=== PATIENT | male | born 1995 | race Hispanic/Latino ===

== ENCOUNTER 2020-08-19 00:49 | Emergency (ER) | payer OTHER, SELFPAY ==
--- NOTE | 2020-08-19 02:11 | ER ---
Nurse's Notes [facility] Name: Bhavesh Her Age: 25 yrs Sex: Male : 1995 Arrival Date: 08/19/2020 Time: 01:02 Bed 20 Private MD: Diagnosis: Cellulitis of left lower limb Presentation: 08/19 01:20 Chief complaint: Patient states: he has two sores on his left leg x 2 days which are bb getting more painful. Coronavirus screen: At this time, the client does not indicate any symptoms associated with coronavirus-19. Ebola Screen: No symptoms or risks identified at this time. Initial Sepsis Screen: Does the patient meet any 2 criteria? No. Patient's initial sepsis screen is negative. Does the patient have a suspected source of infection? No. Patient's initial sepsis screen is negative. Risk Assessment: Do you want to hurt yourself or someone else? Patient reports no desire to harm self or others. Onset of symptoms was August 16, 2020. 01:20 Method Of Arrival: Wheelchair bb 01:20 Acuity: CESAR 4 bb Historical: - Allergies: 01:21 No Known Allergies; bb - Home Meds: 01:21 None [Active]; bb - PMHx: 01:21 None; bb - PSHx: 01:21 None; bb - Immunization history:: Adult Immunizations up to date. - Social history:: Smoking status: Reported history of juuling and/or vaping. Patient/guardian denies using alcohol, street drugs, The patient lives with family. - Family history:: not pertinent. Screenin:30 Abuse screen: Denies threats or abuse. Nutritional screening: No deficits noted. jb4 Tuberculosis screening: No symptoms or risk factors identified. Fall Risk None identified. Assessment: 01:30 General: Appears in no apparent distress. comfortable, Behavior is calm, cooperative, jb4 appropriate for age. Pain: Complains of pain in left leg. Neuro: Level of Consciousness is awake, alert, obeys commands, Oriented to person, place, time, situation. Cardiovascular: Patient's skin is warm and dry. Respiratory: Airway is patent Respiratory effort is even, unlabored, Respiratory pattern is regular, symmetrical. GI: No signs and/or symptoms were reported involving the gastrointestinal system. : No signs and/or symptoms were reported regarding the genitourinary system. EENT: No signs and/or symptoms were reported regarding the EENT system. Derm: Skin is intact, Skin is pink, warm \T\ dry. Musculoskeletal: Circulation, motion, and sensation intact. Range of motion: intact in all extremities. 02:32 Reassessment: Patient appears in no apparent distress at this time. Patient and/or jb4 family updated on plan of care and expected duration. Pain level reassessed. Patient is alert, oriented x 3, equal unlabored respirations, skin warm/dry/pink. Vital Signs: 01:20 BP 126 / 85; Pulse 105; Resp 16 S; Temp 99.6(O); Pulse Ox 98% on R/A; Weight 104.33 kg bb (R); Height 5 ft. 11 in. (180.34 cm) (R); Pain 8/10; 01:20 Body Mass Index 32.08 (104.33 kg, 180.34 cm) ED Course: 01:02 Patient arrived in ED. cf2 01:20 Rika Toribio MD is Attending Physician. ma2 01:21 Triage completed. bb 01:21 Arm band placed on Patient placed in an exam room, on a stretcher, on pulse oximetry. bb Family accompanied patient. 01:30 Patient has correct armband on for positive identification. Bed in low position. Call jb4 light in reach. Side rails up X 1. Pulse ox on. NIBP on. 02:21 Brice Hernandez RN is Primary Nurse. jb4 02:32 No provider procedures requiring assistance completed. Patient did not have IV access jb4 during this emergency room visit. Administered Medications: 02:20 Drug: Clindamycin 900 mg Route: IM; Site: left gluteus; jb4 02:35 Follow up: Response: No adverse reaction jb4 02:20 Drug: [place] (HYDROcodone-acetaminophen) (7.5 mg-325 mg) 1 tabs Route: PO; jb4 02:35 Follow up: Response: No adverse reaction jb4 02:22 Not Given (Other Intervention Used): [place] (HYDROcodone-acetaminophen) (7.5 mg-325 mg) jb4 2 tabs PO once; RASS on ADMIN: Combtv4, Very Agttd3, Agttd2, Rstlss1, AlertClm0, Drwsy-1, Lt Sdtn-2, Mod Sdtn-3, Dp Sdtn-4, UnArsble-5 Outcome: 02:11 Discharge ordered by . sandy2 02:36 Discharged to home ambulatory, with family. jb4 02:36 Condition: stable 02:36 Discharge instructions given to patient, Instructed on discharge instructions, follow up and referral plans. medication usage, Demonstrated understanding of instructions, follow-up care, medications, Prescriptions given X 2. 02:39 Patient left the ED. jb4 Signatures: Blanka Kasper, RN RN Brice Brooks RN RN jb4 Rika Toribio MD MD ma2 Sixto Barraza 2
--- NOTE | 2020-08-19 02:11 | EDPHYS ---
Physician Documentation [facility] Name: Bhavesh Her Age: 25 yrs Sex: Male : 1995 Arrival Date: 08/19/2020 Time: 01:02 Bed 20 Private MD: ED Physician Rika oTribio HPI: 08/19 02:07 This 25 yrs old Male presents to ER via Wheelchair with complaints of Leg ma2 redness. 02:07 The complaints affect the left leg. Associated signs and symptoms: Pertinent negatives: ma2 altered mental status, chest pain, dizziness, dysuria, fever. Severity of symptoms: At their worst the symptoms were mild, in the emergency department the symptoms are unchanged. The patient has not experienced similar symptoms in the past. has left llef redness and mild swelling, he tried to poke the leg with needle at home to drain puss, only blood came out . Historical: - Allergies: 01:21 No Known Allergies; bb - Home Meds: 01:21 None [Active]; bb - PMHx: 01:21 None; bb - PSHx: 01:21 None; bb - Immunization history:: Adult Immunizations up to date. - Social history:: Smoking status: Reported history of juuling and/or vaping. Patient/guardian denies using alcohol, street drugs, The patient lives with family. - Family history:: not pertinent. ROS: 02:07 Constitutional: Negative for fever, chills, and weight loss. ma2 02:07 All other systems are negative. Exam: 02:07 Constitutional: This is a well developed, well nourished patient who is awake, alert, ma2 and in no acute distress. Chest/axilla: Normal chest wall appearance and motion. Nontender with no deformity. No lesions are appreciated. Cardiovascular: Regular rate and rhythm with a normal S1 and S2. No gallops, murmurs, or rubs. Normal PMI, no JVD. No pulse deficits. Respiratory: Lungs have equal breath sounds bilaterally, clear to auscultation and percussion. No rales, rhonchi or wheezes noted. No increased work of breathing, no retractions or nasal flaring. Abdomen/GI: Soft, non-tender, with normal bowel sounds. No distension or tympany. No guarding or rebound. No evidence of tenderness throughout. Skin: Warm, dry with normal turgor. Normal color with no rashes, no lesions, and no evidence of cellulitis. MS/ Extremity: area of celluilitis of left lef about 3x3 cm, no swelling no fluctuence or cripitations.. Pulses equal, no cyanosis. Neurovascular intact. Full, normal range of motion. Neuro: Awake and alert, GCS 15, oriented to person, place, time, and situation. Cranial nerves II-XII grossly intact. Motor strength 5/5 in all extremities. Sensory grossly intact. Cerebellar exam normal. Normal gait. Vital Signs: 01:20 BP 126 / 85; Pulse 105; Resp 16 S; Temp 99.6(O); Pulse Ox 98% on R/A; Weight 104.33 kg bb (R); Height 5 ft. 11 in. (180.34 cm) (R); Pain 8/10; 01:20 Body Mass Index 32.08 (104.33 kg, 180.34 cm) MDM: 01:55 Patient medically screened. ma2 02:07 Differential diagnosis: arthritis, strain, cellulitis. Data reviewed: vital signs, ma2 nurses notes. Counseling: I had a detailed discussion with the patient and/or guardian regarding: the historical points, exam findings, and any diagnostic results supporting the discharge/admit diagnosis, the presence of at least one elevated blood pressure reading (>120/80) during this emergency department visit, the need for outpatient follow up. 02:10 Response to treatment: the patient's symptoms have markedly improved after treatment. ma2 Administered Medications: 02:20 Drug: Clindamycin 900 mg Route: IM; Site: left gluteus; jb4 02:35 Follow up: Response: No adverse reaction jb4 02:20 Drug: [place] (HYDROcodone-acetaminophen) (7.5 mg-325 mg) 1 tabs Route: PO; jb4 02:35 Follow up: Response: No adverse reaction 4 02:22 Not Given (Other Intervention Used): [place] (HYDROcodone-acetaminophen) (7.5 mg-325 mg) jb4 2 tabs PO once; RASS on ADMIN: Combtv4, Very Agttd3, Agttd2, Rstlss1, AlertClm0, Drwsy-1, Lt Sdtn-2, Mod Sdtn-3, Dp Sdtn-4, UnArsble-5 Disposition: 08/19/20 02:11 Discharged to Home. Impression: Cellulitis of left lower limb. - Condition is Stable. - Discharge Instructions: Cellulitis, Adult. - Prescriptions for Clindamycin HCl 300 mg Oral Capsule - take 1 capsule by ORAL route every 6 hours for 10 days; 40 capsule. Diclofenac Sodium 75 mg Oral Tablet Sustained Release - take 1 tablet by ORAL route 2 times per day; 30 tablet. - Work release form, Medication Reconciliation Form, Thank You Letter, Antibiotic Education, Prescription Opioid Use form. - Follow up: Private Physician; When: Tomorrow; Reason: Continuance of care. Signatures: Blanka Kasper RN RN Brice Brooks RN RN jb4 Rika Toribio MD MD ma2 Corrections: (The following items were deleted from the chart) 02:39 02:11 08/19/2020 02:11 Discharged to Home. Impression: Cellulitis of left lower limb. jb4 Condition is Stable. Prescriptions for Clindamycin HCl 300 mg Oral Capsule - take 1 capsule by ORAL route every 6 hours for 10 days; 40 capsule, Diclofenac Sodium 75 mg Oral Tablet Sustained Release - take 1 tablet by ORAL route 2 times per day; 30 tablet. and Forms are Medication Reconciliation Form, Thank You Letter, Antibiotic Education, Prescription Opioid Use. Follow up: Private Physician; When: Tomorrow; Reason: Continuance of care. ma2
[2020-08-19] MEDS ORDERED: CLINDAMYCIN IV 150 MG/ML (4 mL) VIAL ONE (02:33)
[2020-08-19] MEDS ORDERED: HYDROCODONE/APAP 7.5/325 MG TAB ONE (02:34)
[2020-08-19 04:03] VITALS: BP 126/85; TEMP 99.6; O2SAT 98
== END 2020-08-19 02:39 | disposition home or self-care (01) ==
LOC: ER 00:49
DX: L03.116 Cellulitis of left lower limb (principal)
CPT/HCPCS: 96372; 99283; S0077